=== PATIENT | female | born 1975 | race Caucasian/White ===

== ENCOUNTER 2017-11-19 22:56 | Emergency (ER) | payer BC ==
[~2017-11-19] VITALS: Ht 154.9 cm; Wt 77.1 kg
[~2017-11-19 22:56] MED LIST: ASPIRIN325; AUGMENTIN 875875 MG PO; EFFEXOR 5050 MG/1 T1 PO; HYDROCODON-ACE1 EAC7 PO; NORCO 5-325 TA1 EACH PO; NORFLEX100 MG PO; OMEPRAZOLE20 M2; PERCOCET 5-3251 EACH PO; PHENERGAN 25 MG25 M1 PO; TORADOL 10 MG T10 MG PO; TRAMADOL 50 MG50 MG PO
[2017-11-19] MEDS ORDERED: ARAVA20 MG (23:20)
[2017-11-20] MEDS ORDERED: PREDNISONE50 MG PO (00:47)
[2017-11-20 01:00] VITALS: BP 106/68
== END 2017-11-20 01:00 | disposition home or self-care (01) ==
LOC: M.ERS 22:56
DX: L29.9 Pruritus, unspecified (principal); T78.40XA Allergy, unspecified, initial encounter; M79.7 Fibromyalgia; G47.30 Sleep apnea, unspecified; Z90.49 Acquired absence of other specified parts of digestive tract; Z90.710 Acquired absence of both cervix and uterus; Z88.8 Allergy status to other drugs, medicaments and biological substances; X58.XXXA Exposure to other specified factors, initial encounter

== ENCOUNTER → 2017-12-26 | Outpatient (CLI) | payer BC ==
[~2017-12-26] MED LIST changes: +ARAVA20 MG; +PREDNISONE50 MG PO
== END ==
LOC: M.RAD 08:37
DX: Z12.31 Encounter for screening mammogram for malignant neoplasm of breast (principal)

== ENCOUNTER → 2018-06-24 | Outpatient (CLI) | payer BC ==
[~2018-06-24] MED LIST changes: +RIZATRIPTAN10 M1 PO; +ZOFRAN ODT4 MG DISSOLVE
[2018-06-24 12:03] LABS: CSF GLUCOSE 54 mg/dl (40-70); CSF PROTEIN 32.4 mg/dl (15-45)
[2018-06-24 12:25] LABS: CSF CLARITY CLEAR; CSF COLOR COLORLESS; CSF RBC 1 /mm3; CSF WBC 0 /mm3 (0-10); VOLUME 8 ml
[2018-06-26 13:08] LABS: CSF ALBUMIN 15 mg/dL (11-48); CSF IGG INDEX 0.6 (0.0-0.7); CSF IgG 1.5 mg/dL (0.0-8.6); CSF/SERUM ALBUMIN INDEX 3 (0-8)
[2018-06-26 16:08] LABS: MYELIN BASIC PROTEIN 2.6 ng/mL (0.0-1.2)
== END ==
LOC: M.RAD 06-21 10:00 → M.LAB 08:43 → M.RAD 10:00
PROVIDERS: Neurological Surgery
DX: G93.2 Benign intracranial hypertension (principal); F41.9 Anxiety disorder, unspecified; Z88.8 Allergy status to other drugs, medicaments and biological substances; Z79.899 Other long term (current) drug therapy

== ENCOUNTER 2020-11-14 18:00 | Emergency (ER) | payer OTHER ==
[~2020-11-14] VITALS: Ht 154.9 cm; Wt 108.9 kg
[2020-11-14] MEDS ORDERED: LASIX 40 MG TAB40 MG PO (18:23)
[2020-11-14 18:44] LABS: ABSOLUTE LYMPHOCYTES 0.7 thou/uL (0.8-5.3); ABSOLUTE MONOCYTES 0.6 thou/uL (0.0-1.2); ABSOLUTE NEUTROPHILS 3.7 thou/uL (1.6-8.1); BASOPHILS 0.6 %; EOSINOPHILS 0.8 %; HEMATOCRIT 37.3 % (37.0-47.0); HEMOGLOBIN 12.5 gm/dL (12.0-15.0); LYMPHOCYTES 12.9 %; MCH 30.9 pg (26.0-34.0); MCHC 33.6 g/dL (28.0-37.0); MCV 92.1 fL (80.0-100.0); MONOCYTES 12.6 %; MPV 8.1 fl. (7.2-11.1); NUCLEATED RBCS 0 /100WBC; PLATELET COUNT* 239 thou/uL (150-400); POLYS 73.1 %; RBC 4.05 mil/uL (4.20-5.00); RDW-CV 14.8 % (10.5-14.5); WBC 5.1 thou/uL (4.0-11.0)
[2020-11-14 18:59] LABS: CALCIUM 8.6 mg/dL (8.5-10.1); CREATININE 1.2 mg/dL (0.6-1.3)
[2020-11-14 19:04] LABS: ALBUMIN 4.1 g/dL (3.4-5.0); TOTAL BILIRUBIN 0.2 mg/dL (<0.1-1.0); TOTAL PROTEIN 7.8 g/dL (6.4-8.2)
[2020-11-14] MEDS ORDERED: ACETAZOLAMIDE125 MG PO (20:41)
[2020-11-14 21:05] VITALS: BP 116/73
== END 2020-11-14 21:06 | disposition home or self-care (01) ==
LOC: M.ERS 18:00
PROVIDERS: Physician Assistant
DX: R51.9 Headache, unspecified (principal); M79.7 Fibromyalgia; G47.30 Sleep apnea, unspecified; I10 Essential (primary) hypertension; Z88.6 Allergy status to analgesic agent; Z90.49 Acquired absence of other specified parts of digestive tract; Z90.710 Acquired absence of both cervix and uterus

== ENCOUNTER 2021-02-01 09:27 | Emergency (ER) | payer OTHER ==
[~2021-02-01] VITALS: Ht 154.9 cm; Wt 104.3 kg
[~2021-02-01 09:27] MED LIST changes: +ACETAZOLAMIDE125 MG PO; +LASIX 40 MG TAB40 MG PO
[2021-02-01 13:24] LABS: ABSOLUTE BASOPHILS 0.1 thou/uL (0.0-0.2); ABSOLUTE EOSINOPHILS 0.1 thou/uL (0.0-0.7); ABSOLUTE LYMPHOCYTES 2.2 thou/uL (0.8-5.3); ABSOLUTE MONOCYTES 0.5 thou/uL (0.0-1.2); ABSOLUTE NEUTROPHILS 2.3 thou/uL (1.6-8.1); BASOPHILS 1.3 %; EOSINOPHILS 2.8 %; HEMATOCRIT 40.9 % (37.0-47.0); HEMOGLOBIN 13.5 gm/dL (12.0-15.0); LYMPHOCYTES 42.6 %; MCH 30.6 pg (26.0-34.0); MCV 92.8 fL (80.0-100.0); MONOCYTES 9.8 %; MPV 7.8 fl. (7.2-11.1); NUCLEATED RBCS 0 /100WBC; PLATELET COUNT* 309 thou/uL (150-400); POLYS 43.5 %; RBC 4.41 mil/uL (4.20-5.00); RDW-CV 14.4 % (10.5-14.5); WBC 5.2 thou/uL (4.0-11.0)
[2021-02-01 13:34] LABS: URINE BILIRUBIN NEGATIVE (Negative); URINE BLOOD NEGATIVE (Negative); URINE CLARITY CLEAR; URINE COLOR YELLOW; URINE GLUCOSE-RANDOM NEGATIVE (Negative); URINE KETONES NEGATIVE (Negative); URINE LEUKOCYTES NEGATIVE (Negative); URINE NITRITE NEGATIVE (Negative); URINE PROTEIN NEGATIVE (Negative); URINE SPECIFIC GRAVITY 1.025 (1.005-1.030); URINE UROBILINOGEN 0.2 E.U./dl (0.2-1.0)
[2021-02-01 13:35] LABS: CALCIUM 9.3 mg/dL (8.5-10.1); CREATININE 0.9 mg/dL (0.6-1.3); POTASSIUM 4.6 mmol/L (3.5-5.1)
--- NOTE | 2021-02-01 14:27 | EKG ---
[place] [address] ELECTROCARDIOGRAM REPORT Name: REY MARTÍNEZ Room: [facility]#: [id number] Admission: 02/01/21 Attend Phys: Discharge: Date of : 73 Date of Service: 02/01/21 1409 Report #: [id number] THIS REPORT FOR: //name// [facility] ED Test Date: 2021-02-01 Test Time: 14:09:17 Pat Name: REY MARTÍNEZ Department: Room: Gender: F Clinical Aide: GABINO : 1975 Requested By: Brandon Hill Order Number: [id number] MD: Buddy Rivas Measurements Intervals [place] Rate: 49 P: 39 NV: 148 QRS: 13 QRSD: 105 T: -1 QT: 472 QTc: 427 Interpretive Statements Sinus bradycardia Borderline repolarization abnormality Baseline wander in lead(s) II,III,aVL,aVF,V1 Compared to ECG 01/28/2017 00:05:32 Sinus rhythm no longer present Electronically Signed On 02-01-2021 14:26:51 CDT by Buddy Rivas [email or web address] <ELECTRONICALLY SIGNED> By: Buddy Rivas MD, [facility] 02/01/21 1426 1409 1409 Buddy Rivas MD, [facility] /EPI
[2021-02-01] MEDS ORDERED: MECLIZINE HCL25 M1 PO (15:35)
[2021-02-01 15:53] VITALS: BP 120/87
== END 2021-02-01 15:54 | disposition home or self-care (01) ==
LOC: M.ERS 09:27
PROVIDERS: Emergency Medicine
DX: R42 Dizziness and giddiness (principal); H53.2 Diplopia; H92.02 Otalgia, left ear; R20.0 Anesthesia of skin; M79.7 Fibromyalgia; G43.909 Migraine, unspecified, not intractable, without status migrainosus; Z90.49 Acquired absence of other specified parts of digestive tract; Z98.84 Bariatric surgery status; Z90.711 Acquired absence of uterus with remaining cervical stump; Z79.899 Other long term (current) drug therapy; Z88.6 Allergy status to analgesic agent